=== PATIENT | female | born 1995 | race Caucasian/White ===

== ENCOUNTER 2021-02-26 16:15 | Emergency (ER) | payer OTHER, SELFPAY ==
--- NOTE | ~2021-02-26 | XR_ITS ---
EXAMINATION: XR lumbar spine 2-3V DATE: 02/26/2021 19:17 INDICATION: Low back pain. TECHNIQUE: Anteroposterior and lateral views of the lumbar spine, and cone-down lateral view of the l umbosacral junction were obtained. COMPARISON: None. FINDINGS: 9 degrees lumbar levocurvature curvature. Sagittal alignment is normal. Vertebral body and disc heigh ts are normal. No significant facet osteoarthritis. Sacrum and bilateral sacralized joints are normal . Hypoplastic right 12th rib. Soft tissues are unremarkable.. IMPRESSION: 1. 9 degrees lumbar levocurvature. Otherwise unremarkable lumbar spine radiographs. Reviewed, dictated and finalized at location A. IMPRESSION: 1. 9 degrees lumbar levocurvature. Otherwise unremarkable lumbar spine radiogra phs.
[2021-02-26 16:42] VITALS: BP 106/81; PULSE 111; RESP 16; TEMP 36.1; O2SAT 99
[2021-02-26 17:55] VITALS: BP 110/77; PULSE 88; RESP 16; O2SAT 100
--- NOTE | 2021-02-26 18:54 | ED.GENADULT ---
HPI - General Adult General Chief complaint: Back Pain/Injury Stated complaint: Low Back Pain,Headache Time Seen by Provider: 02/26/21 18:07 Source: patient Mode of arrival: ambulatory Limitations: no limitations History of Present Illness HPI narrative: Patient presents for evaluation of low back pain. She states she has experienced pain for most of her life. She has a history of scoliosis. Denies any recent injury. States the pain is constant, 10 out of 10 in severity. Pain radiates from her coccyx all the way up through the thoracic spine. States the pain is sharp. She denies paresthesias. No bladder/bowel incontinence. She has been taking ibuprofen with some improvement in her symptoms or after. She further endorses some right upper dental pain for a while . No descriptive quality or numerical rating with pain. She denies any sending secretions. No additional complaints or concerns. Related Data Allergies Allergy/AdvReac Type Severity Reaction Status Date / Time No Known Allergies Allergy Unverified 02/26/21 18:01 Review of Systems Review of Systems: CONSTITUTIONAL: Denies fever, chills, or sweats. EYES: Denies visual changes, redness, or discharge. ENT: Reports right upper dental pain. Denies rhinorrhea, congestion, sore throat, or otalgia. CARDIOVASCULAR: Denies chest pain, palpitations, or edema. RESPIRATORY: Denies cough or dyspnea. GASTROINTESTINAL: Denies abdominal pain, nausea, vomiting, or diarrhea. GENITOURINARY: Denies dysuria or hematuria. SKIN: Denies rash or itching. MUSCULOSKELETAL: Reports low back pain. Denies joint pain, or myalgia. NEUROLOGIC: Denies headache, numbness, dizziness, or weakness. PSYCHIATRIC: Denies anxiety or depression. [facility], [facility] Past Medical History Medical History (Updated 02/26/21 @ 20:03 by AYESHA Meier, FRAN) Bipolar disorder Scoliosis Surgical History Surgical History History of dilatation and curettage Family History Family History Mother No pertinent past medical history Social History Social History Smoking status: Current every day smoker Alcohol intake: current Alcohol use details: Consumes alcohol several days per week Substance use: current Substance use type: amphetamines Additional living arrangements comments: Lives with significant other Gender identity (if verbalized by the patient): Female Spiritual care concerns: No Exam Narrative: GENERAL: Well-appearing, well-nourished, and in no acute distress. HEAD: Normocephalic, atraumatic. EYES: PERRLA and EOMI. ENT: Tooth #2 is partially impacted. nares clear, no rhinorrhea or epistaxis. Mucous membranes moist. Oropharynx without tonsillar hypertrophy exudate or other lesions. Bilateral TMs pearly russell nonbulging NECK: Supple. No adenopathy or masses. No carotid bruits or JVD CHEST: Clear to auscultation. No respiratory distress. No wheezes rales or rhonchi HEART: Regular rate and rhythm. No murmur heard. Normal peripheral pulses. ABDOMEN: Soft, nontender, nondistended, normal active bowel sounds. EXTREMITIES: Normal range of motion. No edema. BACK: Mild tenderness in midline and paraspinous muscles bilaterally of the lumbar spine SKIN: Warm, dry, no rash. NEURO: No focal deficits. Alert and oriented x3. PSYCH: Somewhat disorganized thinking Course Course Emergency Course: Is a 25-year-old female with history of low back pain and history of scoliosis. X-ray was obtained that showed levocurvature of the lumbar spine without any other abnormalities. We will discharge her with prescriptions for Lidoderm. We will give her some penicillin for dental pain. She was advised to follow-up outpatient for further evaluation treatment return for worsening symptoms. Patient agreed with plan of care. Vit
[2021-02-26 19:00] VITALS: BP 90/60; PULSE 94; RESP 20; O2SAT 99
--- NOTE | 2021-02-26 19:06 | PC.NURSE ---
pt ambulatory with steady gait to and from bathroom with no issue or assist.
--- NOTE | 2021-02-26 19:14 | PC.NURSE ---
report to BORIS Almendarez
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
[2021-02-26] MEDS: ACETAMINOPHEN 325 MG TABLET 650 MG PO (20:30)
== END 2021-02-26 20:30 | disposition home or self-care (01) ==
PROVIDERS: Emergency Provider Nurse Practitioner
DX: M54.5 Low back pain (principal); K01.1 Impacted teeth; F31.9 Bipolar disorder, unspecified; F17.210 Nicotine dependence, cigarettes, uncomplicated
CPT/HCPCS: 72100; 81025; 99283; A9270

== ENCOUNTER 2024-03-24 13:28 | Outpatient (CLI) | payer OTHER, SELFPAY ==
--- NOTE | ~2024-03-24 | US_ITS ---
EXAMINATION: US OB /maternal detail DATE: 03/24/2024 15:34 INDICATION: Encounter for supervision of normal . TECHNIQUE: Real-time ultrasound of the pelvis was performed. COMPARISON: None. FINDINGS: There is a single living fetus in vertex presentation. The placenta is posterior. heart rate i s 154 beats per minute (bpm). The amniotic fluid volume is subjectively normal. The deepest vertical pocket is 4.2 cm. The cervical length is 4.1 cm on transabdominal images, which is normal. The following biometric data were obtained: Biparietal diameter (BPD): 4.8 cm; head circumference (HC): 18.6 cm; abdominal circumference (AC): 16 .9 cm; femur length (FL): 3.7 cm. These measurements are concordant. Estimated weight is 446 g +/- 67 g, which correlates with the 69th percentile when 08/02/24 is u sed as estimated date of delivery. As single measurements, these parameters are each equal to the following estimated gestational ages: BPD: 20 weeks 4 days. HC: 20 weeks 6 days. AC: 21 weeks 6 days. FL: 21 weeks 6 days. estimated gestational age based solely on measurements from this exam is 21 weeks 2 days +/- 1 weeks 3 days. The cerebral ventricles, cerebellum, cisterna magna, nuchal fold, and spine are normal. The heart is normal. The diaphragm, stomach, kidneys, and bladder are normal. There are two umbilical arteries to yield a 3-vessel cord. The cord insertion is normal. IMPRESSION: 1. Single living fetus in vertex presentation. 2. Estimated weight is 446 g +/- 67 g, which correlates with the 69th percentile when 08/02/24 is used as estimated date of delivery. 3. Normal anatomic survey. Reviewed, dictated and finalized at location A. IMPRESSION: 1. Single living fetus in vertex presentation. 2. Estimated weight is 446 g +/- 67 g, which correlates with the 69th pe rcentile when 08/02/24 is used as estimated date of delivery. 3. Normal anatomic survey.
== END 2024-03-24 13:29 | disposition home or self-care (01) ==
LOC: ANHIMG 13:29
DX: Z34.92 Encounter for supervision of normal pregnancy, unspecified, second trimester (principal); Z3A.21 21 weeks gestation of pregnancy
CPT/HCPCS: 76805